=== PATIENT | female | born 1980 | race African-American/Black ===

== ENCOUNTER 2016-11-11 05:47 | Inpatient (IN) | payer OTHER ==
[~2016-11-11] VITALS: Ht 170.2 cm; Wt 95.3 kg
[2016-11-11] VITALS (10 sets, daily range): BP systolic 102–123; BP diastolic 50–80
[2016-11-11] MEDS ORDERED: Pantoprazole Inj IVP ONE (06:00)
[2016-11-11] MEDS ORDERED: Vancomycin 1gm/D5W 275ml IVPB ONE ×2 (06:00)
[2016-11-11] MEDS ORDERED: Thrombin 5000 units TOPIC ONE (06:18)
[2016-11-11] MEDS ORDERED: Thrombin 5000 units spray kit TOPIC ONE ×2 (06:18→10:05)
[2016-11-11] MEDS ORDERED: Bupivacaine w/Epi 0.5% 30ml Vial INJ ONE (06:18)
[2016-11-11] MEDS ORDERED: Gelfoam Absorbable 1gm powder pkt TOPIC ONE ×2 (06:19→10:05)
[2016-11-11] MEDS ORDERED: Bacitracin 50000 Units Vial ONE ×2 (06:19→09:51)
[2016-11-11] MEDS ORDERED: IBUPROFEN600 MG ORAL (06:31)
[2016-11-11] MEDS ORDERED: NAPROXEN250 M1 PO (06:31)
[2016-11-11] MEDS ORDERED: NS Irrig 1000ml ONE (07:30)
[2016-11-11] MEDS ORDERED: Sterile Water Irrig 1000ml IRRIG ONE (07:30)
--- NOTE | 2016-11-11 07:32 | Anethesia Preoperative Eval ---
Anesthesia Pre-op PMH/ROS General Date of Evaluation: November 11, 2016 Time of Evaluation: 07:27 Anesthesiologist: Pratik ASA Score: ASA 2 Mallampati Score Class I : Soft palate, uvula, fauces, pillars visible Class II: Soft palate, uvula, fauces visible Class III: Soft palate, base of uvula visible Class IV: Only hard plate visible Mallampati Classification: Class II Surgeon: Isac Diagnosis: Lumbar radiculopathy Surgical Procedure: L4-L5-S1 laminotomy with decompression and interbody fusion Anesthesia History: none Family History: no anesthesia problems Allergies: Coded Allergies: No Known Allergies (Unverified , 11/10/16) Medications: see eMAR Past Medical History Cardiovascular: Denies: CAD, HTN, MA, arrhythmia, other, valve dz Pulmonary: Reports: asthma - mild, Denies: COPD, KOBE, other Gastrointestinal/Genitourinary: Reports: GERD - mild, Denies: CRI, ESRD, other Neurologic/Psychiatric: Reports: other - chronic pain, Denies: CVA, TIA, dementia, depression/anxiety Endocrine: Denies: DM, hypothyroidism, other, steroids HEENT: Denies: CHITIMACHA (L), CHITIMACHA (R), cataract (L), cataract (R), glaucoma, other Hematology/Immune: Denies: DVT, anemia, bleeding disorder, other Musculoskeletal/Integumentary: Denies: DDD, DJD, OA, RA, edema, other Other: other - overweight PMH Narrative: as above PSxH Narrative: Myomectomy Anesthesia Pre-op Phys. Exam Physician Exam Last Vital Signs Date Time Temp Pulse Resp B/P Pulse Ox O2 Delivery O2 Flow Rate FiO2 11/11/16 06:58 97.5 88 20 121/80 100 Room Air Constitutional: NAD Neurologic: CN 2-12 intact Cardiovascular: RRR, no M/R/G Respiratory: CTA Gastrointestinal: S/NT/ND Airway Exam Mallampati Score: Class II MO: full Neck: flexible ROM: full Teeth: intact Dentures: no lower, no upper Anesthesia Pre-op A/P Labs see chart Urine Test Test 11/11/16 06:05 Urine HCG, Qualitative Negative Studies Pre-op Studies: EKG - NSR Risk Assessment & Plan Assessment: ASA 2 Plan: GA with ETT prone position neuromonitoring Status Change Before Surgery: No Pre-Antibiotics Drug: as scheduled Given Within 1 Hr of Incision: Yes Time Given: 08:15 CHRISTINA CROWE M.D. November 11, 2016 07:31
[2016-11-11] MEDS ORDERED: Propofol 10mg/ml 100ml btl IV ONE (07:45)
[2016-11-11] MEDS ORDERED: LR 1000ml ONE (07:45)
[2016-11-11] MEDS ORDERED: fentaNYL 250mcg/5ml ONE (07:45)
[2016-11-11] MEDS ORDERED: Morphine Sulfate 10mg/ml Inj ONE (07:45)
[2016-11-11] MEDS ORDERED: Nimbex 2mg/ml Inj 10ML IVP ONE ×2 (07:45→09:07)
[2016-11-11] MEDS ORDERED: Midazolam 2mg/2ml Inj ONE (07:45)
[2016-11-11] MEDS ORDERED: Glycopyrrolate 0.2mg/ml 1ml Vial ONE (07:45)
[2016-11-11] MEDS ORDERED: Neostigmine 1mg/ml 10ml Inj ONE (07:45)
[2016-11-11] MEDS ORDERED: Ketorolac 30mg Inj ONE (07:45)
--- NOTE | 2016-11-11 08:08 | Pre-Procedure Note/Attestation ---
Pre-Procedure Note/Attestation Complete Prior to Procedure Planned Procedure: bilateral Procedure Narrative: Posterior lumbar decompressive surgery, L4-5 and L5-S1 level, interbody fusion with PEEK cage at L5-S1, pedicle screw fixation at L4 to S1 levels and posterolateral fusion, and use of autograft, allograft and iliac bone marrow aspiration Attestation I attest that I discussed the nature of the procedure; its benefits; risks and complications; and alternatives (and the risks and benefits of such alternatives ), prior to the procedure, with the patient (or the patient's legal public relations representative). I attest that, if there was a reasonable possibility of needing a blood transfusion, the patient (or the patient's legal public relations representative) was given the [place] [facility] [employer] [facility] standardized written summary, pursuant to the Darwin [place]rum[place] Blood Safety Act ([place] Health and Safety Code # 1645, as amended). I attest that I re-evaluated the patient just prior to the surgery and that there has been no change in the patient's H&P, except as documented below: LILI DUARTE November 11, 2016 08:08
[2016-11-11] MEDS ORDERED: LR 1000ml 1,000 ML IVLG SCH (10:04)
[2016-11-11] MEDS ORDERED: Ketorolac 30mg Inj IV PRN (10:15)
[2016-11-11] MEDS ORDERED: DiphenhydrAMINE 50mg/ml Inj IVP PRN ×2 (10:15→16:30)
[2016-11-11] MEDS ORDERED: Hydromorphone 0.5mg/0.5ml inj IVP PRN (10:15)
[2016-11-11] MEDS ORDERED: Metoclopramide 10mg/2ml Inj IVP PRN (10:15)
[2016-11-11] MEDS ORDERED: Meperidine 25mg/0.5ml Inj IV PRN (10:15)
[2016-11-11] MEDS ORDERED: Midazolam 2mg/2ml Inj IVP PRN (10:15)
[2016-11-11] MEDS ORDERED: PCA HYDROmorphone 1mg/ml 30 ML IV PRN (12:00)
[2016-11-11] MEDS ORDERED: Propofol 10mg/ml 20ml IV ONE (12:21)
[2016-11-11] MEDS ORDERED: Bacitracin Oint 15gm Tube TOPIC ONE (13:35)
--- NOTE | 2016-11-11 14:35 | Immediate Post-Op Evaluation ---
Immediate Post-Op Evalulation Immediate Post-Op Evalulation Procedure: L4-L5-S1 laminotomy with decompressio and interbody fusion Date of Evaluation: November 11, 2016 Time of Evaluation: 14:30 IV Fluids: 1700 Blood Products: none Estimated Blood Loss: 150 Urinary Output: 350 Blood Pressure Systolic: 102 Blood Pressure Diastolic: 56 Pulse Rate: 108 Respiratory Rate: 22 O2 Sat by Pulse Oximetry: 99 Temperature (Fahrenheit): 98.8 Pain Score (1-10): 2 Nausea: No Vomiting: No Complications none Patient Status: reacts, patent, extubated, none Hydration Status: adequate CHRISTINA CROWE M.D. November 11, 2016 14:35
--- NOTE | 2016-11-11 14:44 | Diagnostic Imaging Report ---
Indications: Low back and right lower extremity pain, lumbar fusion Technique: Above procedure including fluoroscopy performed by Dr. Chau. Portable intraoperative spot film images of lower lumbar spine performed in PA, lateral, and oblique projections. Findings: Comparison: None Initial image demonstrates surgical implement overlying the posterior elements at the L5-S1 level. L5-S1 disc space narrowing with marginal osteophyte formation. Subsequent images demonstrate placement of fusion hardware within the L5-S1 disc space, placement of bilateral pedicle screws at L4 and S1 and the right pedicle screw at L5, bridged by longitudinal rods bilaterally. IMPRESSION: Surgical changes as described
--- NOTE | 2016-11-11 15:02 | Brief Operative Note ---
Immediate Post Operative Note Operative Note Chief Complaint: severe low back pain, radiating pian into legs, R worse than left Pre-op Diagnosis: Intractable low back pain disc collapse at L5-S1 herniated disc at L4-5 lack of improvement from conservative treatment, and interventional pain injections Procedure: 1. Posterior lumbar decompression L5-S1 2. Transpedicular fixation L4 to S1 thru intermuscular approach. 3. Posterolateral arthrodesis L4-5, L5-S1 bilaterally 4. Aspiration of bone marrow left iliac crest 5. [place] of local bone form laminectomy for fusion 6. Insertion of biomechanical PEEK cage L5-S1 9 mm Spinal elements at L5S1 under fluoroscopy 7. Transforaminal approach left L5-S1 for complete discectomy and preparation of the disc space 8. Internal neurolysis of the left S1 root with microdissection 9. Intra-op neuro-monitoring and pedicle screw stimulation 10.plastic surgical closure of 12 cm lumbar wound 11. Modifier 22 for degree of difficulty. 12. application of fat graft to laminectomy defect at L5-S1. Post-op Diagnosis: same as pre-op Findings: consistent w/pre-op dx studies Surgeon: Jessi Ferrera MD Scale Technician: Mohit Szymanski MD Anesthesiologist: Dr. Christie Anesthesia: general Specimen: none Complications: none Condition: stable Fluids: crystalloids 1500 Estimated Blood Loss: volume Drains: hemovac Implant(s) used?: Yes - Medacta pedicle screws. Spinal elements interbody JESSI DUARTE November 11, 2016 15:02
--- NOTE | 2016-11-11 15:05 | General Progress Note ---
Progress Note Progress Note Neurosurgery Post-op check S/ Comfortable no leg pain O/ Af 100 sat 110/58 Arousable. Appropriate Moves all extremities well normal sensation in all extremities drain with minimal output Pt's Mom updated LILI DUARTE November 11, 2016 15:05
[2016-11-11] MEDS ORDERED: Milk of Magnesia 30ml Ud ORAL PRN (15:15)
[2016-11-11] MEDS ORDERED: Cyclobenzaprine 10mg Tab ORAL PRN (15:15)
[2016-11-11] MEDS ORDERED: Rate Change PCA 1 Each MISC PRN (16:30)
[2016-11-11] MEDS ORDERED: LORazepam 1mg tab ORAL PRN (16:30)
[2016-11-11] MEDS: Docusate 100mg cap ORAL SCH (18:26)
[2016-11-11] MEDS: NS w/KCl 20mEq 1,000 ML IV SCH (18:26)
[2016-11-11] MEDS: PCA shift volume MISC SCH (19:00)
[2016-11-11] MEDS: Vancomycin 1.25 GM in D5W 275 ML IVPB SCH (20:22)
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
[2016-11-11] MEDS ORDERED: Trimethobenzamide 100mg/ml vial IM PRN (23:30)
[2016-11-12] VITALS: BP 126/81
[2016-11-12 04:00] VITALS: BP 101/61
[2016-11-12] MEDS: NS w/KCl 20mEq 1,000 ML IV SCH ×2 (04:00→14:00)
[2016-11-12 05:21] LABS: BASOPHILS % (AUTO) 0.4 % (0.0-2.0); LYMPHOCYTES % (AUTO) 8.5 % (20.0-45.0); MEAN CORPUSCULAR HEMOGLOBIN 29.1 PG (27.0-31.0); MEAN CORPUSCULAR HGB CONC 32.9 G/DL (32.0-36.0); MEAN CORPUSCULAR VOLUME 89 FL (80-99); MEAN PLATELET VOLUME 8.1 FL (6.5-10.1); MONOCYTES % (AUTO) 7.9 % (1.0-10.0); NEUTROPHILS % (AUTO) 83.2 % (45.0-75.0); PLATELET COUNT 296 K/UL (150-450); RED BLOOD COUNT 4.09 M/UL (4.20-5.40); RED CELL DISTRIBUTION WIDTH 13.4 % (11.6-14.8); WHITE BLOOD COUNT 14.5 K/UL (4.8-10.8)
[2016-11-12 05:36] LABS: ANION GAP 12 (5-15); CALCIUM 8.2 mg/dL (8.6-10.2); CARBON DIOXIDE 26 mEQ/L (20-30); CHLORIDE 99 mEQ/L (98-107); CREATININE 0.5 mg/dL (0.5-0.9); GLOMERULAR FILTRATION RATE > 60 mL/min (>60); HEMOLYSIS 3; POTASSIUM 4.1 mEQ/L (3.4-4.9); SODIUM 137 mEQ/L (135-145)
[2016-11-12] MEDS: PCA shift volume MISC SCH (07:17)
[2016-11-12 08:00] VITALS: BP 115/70
--- NOTE | 2016-11-12 08:33 | General Progress Note ---
Progress Note Progress Note Neurosurgery POD #1 S/ Incisonal pain under control O/ Vs: Last 24 Hour Vital Signs Date Time Temp Pulse Resp B/P Pulse Ox O2 Delivery O2 Flow Rate FiO2 11/12/16 04:41 20 11/12/16 04:00 98.1 87 18 101/61 97 Room Air 11/12/16 00:41 20 11/12/16 00:00 98.2 91 18 126/81 98 Room Air 11/11/16 20:41 19 11/11/16 16:41 19 11/11/16 16:11 20 11/11/16 16:00 97.0 63 18 118/75 100 Room Air 11/11/16 15:40 19 11/11/16 15:20 98.6 92 20 112/50 100 Nasal Cannula 2.0 11/11/16 15:15 99 20 120/61 100 Nasal Cannula 2.0 11/11/16 15:11 20 11/11/16 14:56 20 11/11/16 14:56 101 20 120/61 100 Simple Mask 8.0 11/11/16 14:53 109 20 121/61 100 Simple Mask 8.0 11/11/16 14:45 110 20 116/64 100 Simple Mask 8.0 11/11/16 14:35 108 22 99 11/11/16 14:30 110 20 123/62 100 Simple Mask 8.0 11/11/16 14:25 112 20 102/55 100 Simple Mask 8.0 11/11/16 14:20 99.1 116 20 108/61 100 Simple Mask 8.0 On exam, Alert and oriented x 4. Pt's mom at bedside motor is 5/5 HV removed w/o complications incision is clean dry and intact sensory normal. Laboratory Tests Test 11/12/16 05:05 White Blood Count 14.5 K/UL (4.8-10.8) H Red Blood Count 4.09 M/UL (4.20-5.40) L Hemoglobin 11.9 G/DL (12.0-16.0) L Hematocrit 36.3 % (37.0-47.0) L Mean Corpuscular Volume 89 FL (80-99) Mean Corpuscular Hemoglobin 29.1 PG (27.0-31.0) Mean Corpuscular Hemoglobin Concent 32.9 G/DL (32.0-36.0) Red Cell Distribution Width 13.4 % (11.6-14.8) Platelet Count 296 K/UL (150-450) Mean Platelet Volume 8.1 FL (6.5-10.1) Neutrophils (%) (Auto) 83.2 % (45.0-75.0) H Lymphocytes (%) (Auto) 8.5 % (20.0-45.0) L Monocytes (%) (Auto) 7.9 % (1.0-10.0) Eosinophils (%) (Auto) 0.0 % (0.0-3.0) Basophils (%) (Auto) 0.4 % (0.0-2.0) Sodium Level 137 mEQ/L (135-145) Potassium Level 4.1 mEQ/L (3.4-4.9) Chloride Level 99 mEQ/L (98-107) Carbon Dioxide Level 26 mEQ/L (20-30) Anion Gap 12 (5-15) Blood Urea Nitrogen 7 mg/dL (7-23) Creatinine 0.5 mg/dL (0.5-0.9) Estimat Glomerular Filtration Rate > 60 mL/min (>60) Glucose Level 117 mg/dL (74-106) H Calcium Level 8.2 mg/dL (8.6-10.2) L Labs doing well PT bowel care switch to oral meds LILI DUARTE November 12, 2016 08:33
[2016-11-12] MEDS: Vancomycin 1.25 GM in D5W 275 ML IVPB SCH (09:39)
[2016-11-12] MEDS: Docusate 100mg cap ORAL SCH ×2 (09:39→17:52)
[2016-11-12] MEDS ORDERED: HYDROmorphone 1mg/ml Carpuject IVP PRN (10:42)
[2016-11-12 12:00] VITALS: BP 103/59
[2016-11-12] MEDS: Dyna-Hex 2% Top Sol 8oz TOPIC SCH (12:00)
--- NOTE | 2016-11-12 12:36 | 48 Hour Post Anesthesia Eval ---
Post Anesthesia Evaluation Procedure: L4-L5-S1 laminotomy with decompressio and interbody fusion Date of Evaluation: November 12, 2016 Time of Evaluation: 12:35 Blood Pressure Systolic: 115 0: 70 Pulse Rate: 69 Respiratory Rate: 18 Temperature (Fahrenheit): 97.7 O2 Sat by Pulse Oximetry: 100 Airway: patent Nausea: No Vomiting: No Pain Intensity: 2 Hydration Status: adequate Cardiopulmonary Status: Stable Mental Status/LOC: patient returned to baseline Follow-up Care/Observations: Some itching from opioids Post-Anesthesia Complications: 0 Follow-up care needed: N/A Arcenio Ferrell MD November 12, 2016 12:36
--- NOTE | 2016-11-12 12:53 | Diagnostic Imaging Report ---
Indication: Back pain. Postop lower lumbar surgery Technique: Continuous helical transaxial imaging of the lumbar spine was obtained from the lung bases to the pubic symphysis. No IV contrast was administered. Coronal 2-D reformats were also obtained. Study obtained in a Siemens sensation [address] Total Dose length Product (DLP): [address] Dose Index Volume (CTDIvol): 21 mGy Comparison: None Findings: Patient is status post recent lower lumbar fusion with pedicle screws and fusion rods bilaterally at L4 and bilaterally at S1 and unilaterally on the right at L5. There is a screw tract noted on the left L5 pedicle but there is no hardware in this location. Hardware alignment and position appear unremarkable. A partial left L5 laminotomy has been performed. There is no obvious hematoma or a large postoperative fluid collection. The there is some expected soft tissue edema and air noted in the paraspinous soft tissues posterior to the lower lumbar spine in the area of the surgical bed. There is disruption and ill-definition of the muscular fascia as expected. Overall alignment appears normal. There is a prosthetic disc at L5-S1. There is narrowing of the L4-5 disc. Impression: Postsurgical changes associated with recent L4-S1 instrumented fusion. Hardware alignment and position appear unremarkable. Left hemilaminotomy at L5 noted. The CT scanner at [facility] is accredited by the [employer] and the scans are performed using dose optimization techniques as appropriate to a performed exam including Automatic Exposure control.
[2016-11-12] MEDS: Norco 7.5mg/325mg tab ORAL PRN ×2 (13:53→21:30)
[2016-11-12 16:00] VITALS: BP 100/53
[2016-11-12 20:00] VITALS: BP 112/69
--- NOTE | 2016-11-12 20:05 | General Progress Note ---
Assessment/Plan Status Narrative s/p complex spin esurgery mionimal periooperative blood loss doign well Assessment/Plan PHYSICLA THERPAY OCCUPATIONAL THERPAY PAIN CONTROL DOING WELL DVT OPROPHAYLXIS Subjective Date patient seen: November 12, 2016 Time patient seen: 20:03 Constitutional: Reports: no symptoms HEENT: Reports: no symptoms Cardiovascular: Reports: no symptoms Allergies: Coded Allergies: No Known Allergies (Unverified , 11/10/16) Subjective has pain but getting better no fevernochills Objective Last 24 Hour Vital Signs Date Time Temp Pulse Resp B/P Pulse Ox O2 Delivery O2 Flow Rate FiO2 11/12/16 16:00 98.9 95 18 100/53 98 Room Air 11/12/16 14:52 97.7 11/12/16 12:36 69 18 100 11/12/16 12:00 96.8 88 18 103/59 95 Room Air 11/12/16 10:10 97.7 11/12/16 08:41 18 11/12/16 08:00 97.7 69 18 115/70 100 Room Air 11/12/16 04:41 20 11/12/16 04:00 98.1 87 18 101/61 97 Room Air 11/12/16 00:41 20 11/12/16 00:00 98.2 91 18 126/81 98 Room Air 11/11/16 20:41 19 Intake and Output 11/11/16 11/12/16 19:00 07:00 Intake Total 1900 ml 835.0 ml Output Total 300 ml 1465 ml Balance 1600 ml -630.0 ml Intake Oral 360 ml IV Total 1900 ml 475.0 ml Output Urine Total 150 ml 1400 ml Drainage Total 65 ml Estimated Blood Loss 150 ml Laboratory Tests 11/12/16 05:05: White Blood Count 14.5H, Red Blood Count 4.09L, Hemoglobin 11.9L, Hematocrit 36.3L, Mean Corpuscular Volume 89, Mean Corpuscular Hemoglobin 29.1, Mean Corpuscular Hemoglobin Concent 32.9, Red Cell Distribution Width 13.4, Platelet Count 296, Mean Platelet Volume 8.1, Neutrophils (%) (Auto) 83.2H, Lymphocytes ( %) (Auto) 8.5L, Monocytes (%) (Auto) 7.9, Eosinophils (%) (Auto) 0.0, Basophils (%) (Auto) 0.4, Sodium Level 137, Potassium Level 4.1, Chloride Level 99, Carbon Dioxide Level 26, Anion Gap 12, Blood Urea Nitrogen 7, Creatinine 0.5, Estimat Glomerular Filtration Rate > 60, Glucose Level 117H, Calcium Level 8.2L Height (Feet): 5 Height (Inches): 7.00 Weight (Pounds): 210 General Appearance: WD/WN Neck: other - no jvd Cardiovascular: normal rate, regular rhythm Respiratory/Chest: lungs clear [place] MILLER November 12, 2016 20:05
[2016-11-13] VITALS: BP 106/60
[2016-11-13] MEDS: Norco 7.5mg/325mg tab ORAL PRN ×4 (02:57→23:30)
[2016-11-13 04:00] VITALS: BP 105/64
[2016-11-13 08:00] VITALS: BP 105/57
[2016-11-13] MEDS: Dyna-Hex 2% Top Sol 8oz TOPIC SCH (09:00)
[2016-11-13] MEDS: Docusate 100mg cap ORAL SCH ×2 (09:27→17:16)
--- NOTE | 2016-11-13 10:55 | General Progress Note ---
Assessment/Plan Assessment/Plan fhas a lower face swelling possible finfecifton will do below vanco iv pharmacy to sdose will place bactroban will follow no dischrge today Subjective Date patient seen: November 13, 2016 Time patient seen: 10:53 Constitutional: Reports: no symptoms HEENT: Reports: no symptoms Cardiovascular: Reports: no symptoms Respiratory: Reports: no symptoms Allergies: Coded Allergies: No Known Allergies (Unverified , 11/10/16) Subjective has pain but getting better no fevernochills Objective Last 24 Hour Vital Signs Date Time Temp Pulse Resp B/P Pulse Ox O2 Delivery O2 Flow Rate FiO2 11/13/16 08:00 98.1 87 18 105/57 96 Room Air 11/13/16 04:00 97.9 99 16 105/64 97 Room Air 11/13/16 00:00 97.7 91 18 106/60 96 Room Air 11/12/16 20:00 97.9 103 18 112/69 97 Room Air 11/12/16 16:00 98.9 95 18 100/53 98 Room Air 11/12/16 14:52 97.7 11/12/16 12:36 69 18 100 11/12/16 12:00 96.8 88 18 103/59 95 Room Air Intake and Output 11/12/16 11/13/16 19:00 07:00 Intake Total 360 ml Balance 360 ml Intake Oral 360 ml # Voids 1 2 Height (Feet): 5 Height (Inches): 7.00 Weight (Pounds): 210 General Appearance: WD/WN Cardiovascular: normal rate, regular rhythm, no JVD Respiratory/Chest: lungs clear Abdomen: soft [place] MILLER November 13, 2016 10:55
[2016-11-13 12:00] VITALS: BP 103/51
[2016-11-13] MEDS ORDERED: Vancomycin 1.25 GM in D5W 275 ML IVPB SCH ×2 (12:00→20:00)
[2016-11-13] MEDS ORDERED: Lactulose 20gm/30ml UDC ORAL PRN (14:00)
--- NOTE | 2016-11-13 14:10 | General Progress Note ---
Progress Note Progress Note Neurosurgery POD#2 S/ Incsional pain controlled with pos. voided. No BM. Ambulated with PT and walker. Chin swelling much better. Started on Abx ointment for the chin. O/ Last 24 Hour Vital Signs Date Time Temp Pulse Resp B/P Pulse Ox O2 Delivery O2 Flow Rate FiO2 11/13/16 12:00 98.2 94 20 103/51 98 Room Air 11/13/16 08:00 98.1 87 18 105/57 96 Room Air 11/13/16 04:00 97.9 99 16 105/64 97 Room Air 11/13/16 00:00 97.7 91 18 106/60 96 Room Air 11/12/16 20:00 97.9 103 18 112/69 97 Room Air 11/12/16 16:00 98.9 95 18 100/53 98 Room Air 11/12/16 14:52 97.7 Alert and oriented smiling. Mom at bedside. Incision clean dry and intact. Moves all extremities well Normal sensation. 2 cm area of chin with Abx ointment. tongue clear. white mucus build-up at the lower gum. CT l-spine: Imaging studies reviewed personally. Instrumentation is good position. No fluid collection. Ambulate with PT Bowel Care Antibiotic ointment for chin folliculitis. Swabs sent by Dr. Weber Home DMEs d/c instructions reviewed with pt and her mother in detail and will be written in orders. hold discharge for today per Dr. Weber. LILI DUARTE November 13, 2016 14:10
[2016-11-13] MEDS: Milk of Magnesia 30ml Ud ORAL SCH ×2 (14:15→21:54)
[2016-11-13 16:00] VITALS: BP 102/65
[2016-11-13] MEDS: Nystatin Susp 500,000 units/5ml ORAL SCH ×2 (17:16→21:00)
[2016-11-13] MEDS: Vancomycin 1.25 GM in NS 275 ML IVPB SCH (20:00)
[2016-11-14] VITALS: BP 110/55
[2016-11-14 04:00] VITALS: BP 118/77
[2016-11-14] MEDS: Vancomycin 1.25 GM in NS 275 ML IVPB SCH (04:00)
[2016-11-14] MEDS: Norco 7.5mg/325mg tab ORAL PRN ×4 (05:57→22:36)
[2016-11-14] MEDS: Milk of Magnesia 30ml Ud ORAL SCH ×3 (06:00→22:00)
[2016-11-14 07:08] LABS: ANION GAP 12 (5-15); CALCIUM 8.6 mg/dL (8.6-10.2); CARBON DIOXIDE 30 mEQ/L (20-30); CHLORIDE 98 mEQ/L (98-107); CREATININE 0.6 mg/dL (0.5-0.9); GLOMERULAR FILTRATION RATE > 60 mL/min (>60); HEMOLYSIS 1; POTASSIUM 3.3 mEQ/L (3.4-4.9); SODIUM 140 mEQ/L (135-145)
[2016-11-14 08:00] VITALS: BP 105/55
[2016-11-14] MEDS: Nystatin Susp 500,000 units/5ml ORAL SCH ×4 (08:48→22:27)
[2016-11-14] MEDS: Docusate 100mg cap ORAL SCH ×2 (08:48→17:49)
[2016-11-14] MEDS: Dyna-Hex 2% Top Sol 8oz TOPIC SCH (09:00)
[2016-11-14 12:00] VITALS: BP 110/67
--- NOTE | 2016-11-14 12:19 | General Progress Note ---
Assessment/Plan Status Narrative s/p complex spine surgery pos top chin foliculitis hypokalemia constipation Assessment/Plan vanco then switch to bactrom ds as ouit patient bactroban bid give mom and see how she does with constipaiton likely dc today nad or tommorroqw Subjective Date patient seen: November 14, 2016 Time patient seen: 12:15 Constitutional: Reports: no symptoms HEENT: Reports: no symptoms Cardiovascular: Reports: no symptoms Respiratory: Reports: no symptoms Allergies: Coded Allergies: No Known Allergies (Unverified , 11/10/16) Subjective chin swellin gis less Objective Last 24 Hour Vital Signs Date Time Temp Pulse Resp B/P Pulse Ox O2 Delivery O2 Flow Rate FiO2 11/14/16 08:00 97.7 81 18 105/55 97 Room Air 11/14/16 07:00 98.1 11/14/16 04:00 98.1 86 18 118/77 95 Room Air 11/14/16 00:00 98.1 92 18 110/55 97 Room Air 11/13/16 16:00 98.1 88 18 102/65 96 Room Air Intake and Output 11/13/16 11/14/16 19:00 07:00 Intake Total 150 ml 1350 ml Balance 150 ml 1350 ml Intake Oral 150 ml 800 ml IV Total 550 ml # Voids 2 2 Laboratory Tests 11/14/16 06:05: Sodium Level 140, Potassium Level 3.3L, Chloride Level 98, Carbon Dioxide Level 30, Anion Gap 12, Blood Urea Nitrogen 5L, Creatinine 0.6, Estimat Glomerular Filtration Rate > 60, Glucose Level 108H, Calcium Level 8.6 11/14/16 11:25: Vancomycin Level Trough 51.5H Height (Feet): 5 Height (Inches): 7.00 Weight (Pounds): 210 General Appearance: WD/WN EENT: other - chin has less welling and less erythma Neck: non-tender Cardiovascular: normal rate, regular rhythm, no JVD Respiratory/Chest: lungs clear Abdomen: non tender, soft [place] MILLER November 14, 2016 12:19
[2016-11-14] MEDS ORDERED: NS 275ml ONE (14:23)
[2016-11-14 16:00] VITALS: BP 113/70
[2016-11-14 20:00] VITALS: BP 116/67
[2016-11-15] VITALS: BP 107/61
[2016-11-15 04:00] VITALS: BP 100/59
[2016-11-15] MEDS: Milk of Magnesia 30ml Ud ORAL SCH (06:00)
[2016-11-15] MEDS: Norco 7.5mg/325mg tab ORAL PRN ×2 (06:17→11:45)
[2016-11-15 07:39] LABS: ANION GAP 17 (5-15); CALCIUM 8.7 mg/dL (8.6-10.2); CARBON DIOXIDE 22 mEQ/L (20-30); CHLORIDE 96 mEQ/L (98-107); CREATININE 0.6 mg/dL (0.5-0.9); GLOMERULAR FILTRATION RATE > 60 mL/min (>60); HEMOLYSIS 14; POTASSIUM 3.8 mEQ/L (3.4-4.9); SODIUM 135 mEQ/L (135-145)
[2016-11-15 08:00] VITALS: BP 113/64
[2016-11-15] MEDS: Nystatin Susp 500,000 units/5ml ORAL SCH (08:56)
[2016-11-15] MEDS: Docusate 100mg cap ORAL SCH (08:57)
[2016-11-15] MEDS: Dyna-Hex 2% Top Sol 8oz TOPIC SCH (08:57)
[2016-11-15] MEDS ORDERED: NORCO1 E1 ORAL (11:55)
[2016-11-15] MEDS ORDERED: CYCLOBENZAPRINE10 MG ORAL (11:56)
[2016-11-15] MEDS ORDERED: BACTRIM DS TAB1 EAC1 ORAL (11:57)
[2016-11-15] MEDS ORDERED: COLACE100 MG ORAL (11:57)
[2016-11-15] MEDS ORDERED: BACTROBAN CR1 APPLIC TOPIC (11:58)
[2016-11-15] MEDS ORDERED: Vancomycin 1250mg/D5W 275ml IVPB SCH ×2 (14:00)
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
== END 2016-11-15 12:30 | disposition home or self-care (01) | DRG 460 ==
LOC: SDSOVERFLO 05:47 → 3E 16:10
PROC: 07DR3ZZ Extraction of Iliac Bone Marrow, Percutaneous Approach (ICD-10-PCS; principal; 2016-11-11 07:00)
PROC: 01NR0ZZ Release Sacral Nerve, Open Approach (ICD-10-PCS; principal; 2016-11-11 07:00)
PROC: 0ST40ZZ Resection of Lumbosacral Disc, Open Approach (ICD-10-PCS; principal; 2016-11-11 07:00)
PROC: 0SG30A1 (ICD-10-PCS; principal; 2016-11-11 07:00)
PROC: 0SG1071 Fusion of 2 or more Lumbar Vertebral Joints with Autologous Tissue Substitute, Posterior Approach, Posterior Column, Open Approach (ICD-10-PCS; principal; 2016-11-11 07:00)
DX: M51.16 Intervertebral disc disorders with radiculopathy, lumbar region (principal); E87.6 Hypokalemia; M51.17 Intervertebral disc disorders with radiculopathy, lumbosacral region; V89.2XXS Person injured in unspecified motor-vehicle accident, traffic, sequela; L73.8 Other specified follicular disorders; K59.00 Constipation, unspecified
CPT/HCPCS: 36415; 72020; 72131; 76001; 80048; 80202; 81025; 85025; 87070; 87081; 87205; 94003; 94150; J1580; J2250; J2405; J2710; J8499